=== PATIENT | male | born 1945 | race Hispanic/Latino ===

== ENCOUNTER 2019-06-24 15:10 | Emergency (ER) | payer MEDICARE ==
[~2019-06-24] VITALS: Ht 172.7 cm; Wt 68.0 kg
[~2019-06-24 15:10] MED LIST: ASPIR-LOW81 MG PO; ATORVASTATIN CA10 MG PO; OMEPRAZOLE40 MG PO
[2019-06-24] MEDS ORDERED: SODIUM CHLORIDE 0.9% 1000ML 1,000 ML IV STA (15:38)
[2019-06-24] MEDS ORDERED: ONDANSETRON HCL INJ 2MG/ML 2ML 2 MG/ML VIAL IV ONE (15:45)
[2019-06-24] MEDS ORDERED: KETOROLAC TROMETHAMINE 30 MG/ML VIAL IV ONE (15:45)
--- NOTE | 2019-06-24 16:30 | Diagnostic Imaging Report ---
EXAM: CT Abdomen and Pelvis WITHOUT intravenous contrast INDICATION: Abdominal pain, back pain COMPARISON: None. TECHNIQUE: Abdomen and pelvis were scanned utilizing a multidetector helical scanner from the lung base to the pubic symphysis without administration of IV contrast. Coronal and sagittal reformations were obtained. Routine protocol was performed. IV CONTRAST: None ORAL CONTRAST: Water RADIATION DOSE: Total DLP: 421.4 mGy*cm Dose modulation, iterative reconstruction, and/or weight based adjustment of the mA/kV was utilized to reduce the radiation dose to as low as reasonably achievable. FINDINGS: LOWER THORAX: Minimal dependent right lower lobe subsegmental atelectasis. HEPATOBILIARY: No focal liver lesion. Decompressed gallbladder. SPLEEN: No splenomegaly. PANCREAS: No focal masses or ductal dilatation. ADRENALS: No adrenal nodules. KIDNEYS/URETERS: No hydronephrosis, stones, or solid mass lesions. PELVIC ORGANS/BLADDER: Unremarkable. PERITONEUM / RETROPERITONEUM: No free air or fluid. LYMPH NODES: No lymphadenopathy. VESSELS: Atherosclerotic calcifications of the nonaneurysmal abdominal aorta and major branches. GI TRACT: Mild apparent thickening of the gastric wall. Diverticulosis without CT evidence of diverticulitis. Normal bowel wall thickening. No bowel obstruction. Normal appendix. BONES AND SOFT TISSUES: No acute osseous injury. Degenerative changes of the visualized spine. No suspicious lytic or blastic lesions. IMPRESSION: Mild apparent thickening of the gastric wall may be due to underdistention or could also be seen with gastritis. Otherwise, no acute findings in abdomen or pelvis. Specifically, no renal calculi or hydronephrosis. Signed by: Joyce Carroll MD on 06/24/2019 4:26 PM
[2019-06-24] MEDS ORDERED: ONDANSETRON HCL INJ 2MG/ML 2ML 2 MG/ML VIAL ONE (16:45)
[2019-06-24] MEDS ORDERED: KETOROLAC TROMETHAMINE 30 MG/ML VIAL ONE (16:46)
[2019-06-24] MEDS ORDERED: SODIUM CHLORIDE 0.9% 1000ML 1,000 ML ONE (16:46)
[2019-06-24 17:07] VITALS: BP 146/88
== END 2019-06-24 17:09 | disposition home or self-care (01) ==
LOC: FSED 15:10
DX: M54.5 Low back pain (principal); M47.816 Spondylosis without myelopathy or radiculopathy, lumbar region; M51.36 Other intervertebral disc degeneration, lumbar region; I10 Essential (primary) hypertension
CPT/HCPCS: 74176; 80053; 81003; 85025; 99284; J1885; J2405; J7030

== ENCOUNTER → 2020-02-20 | Outpatient (CLI) | payer MEDICARE ==
--- NOTE | 2020-02-20 15:55 | Diagnostic Imaging Report ---
Examination: MRI BRAIN WO CONTRAST History: Headaches. Dizziness. Comparison studies: None Technique: Sagittal T2; axial DWI, FLAIR, GRE or SWI, T1, Coronal FLAIR. Intravenous contrast: None Findings: Scalp: No abnormal signal. No masses. Bone marrow: Normal in signal intensity. Brain volume: Adequate for age. No volume loss. Ventricles: Normal in size and configuration. No hydrocephalus. Extra-axial spaces: No abnormalities. Parenchyma: There are a few scattered punctate areas of T2/FLAIR hyperintensity in the periventricular and subcortical white matter, nonspecific. No masses, hemorrhage, acute or chronic vascular insults. Suprasellar and sellar region: No abnormalities. Craniocervical junction: No abnormalities. The foramen magnum is patent. No Chiari malformations. Vessels: Normal flow-voids in the arteries and sinuses. Additional findings:Partially visualized (only seen on sagittal T2 images) between moderate to severe canal stenosis at C3-C4 due to diffuse disc bulge and ligamentum flavum thickening. IMPRESSION: No acute intracranial abnormalities. Partially visualized between moderate to severe canal stenosis at C3-C4. Signed by: Dr. Shania Atkins M.D. on 02/20/2020 3:52 PM
== END ==
LOC: MRI 14:16
PROVIDERS: ATTEND Psychiatry & Neurology Clinical Neurophysiology
DX: G43.019 Migraine without aura, intractable, without status migrainosus (principal)
CPT/HCPCS: 70551

== ENCOUNTER → 2020-03-16 | Outpatient (CLI) | payer OTHER ==
--- NOTE | 2020-03-16 10:06 | Diagnostic Imaging Report ---
History: Cervical spine stenosis. Comparison studies: None Technique: Sagittal and axial T1 and T2, sagittal STIR and axial T2 GRE. Intravenous contrast: None Findings: Alignment: Normal lordosis. No scoliosis. Cervicomedullary junction: No abnormalities. Patent foramen magnum. Soft tissues: No T2 hyperintense inflammatory changes. Spinal cord: Normal in size and signal from the foramen magnum through mass effect on the spinal cord due to severe canal stenosis at C5-C6 as described below. No gross cord signal abnormality. Vertebrae: No fractures, infection or neoplasm. Degenerative changes: C2-C3: Mildly degenerated disc. Uncovertebral arthrosis and severe right facet arthrosis with fused right facet without significant foraminal stenosis. Patent spinal canal. C3-C4: Mildly degenerated disc. Asymmetric right disc osteophyte complex and thickened ligamentum flavum result in moderate canal stenosis. Severe right and moderate left foraminal stenosis due to uncovertebral and severe right and mild left facet arthrosis. C4-C5: Mildly degenerated disc. Moderate canal stenosis due to a disc osteophyte complex and thickened ligamentum flavum. Severe left and moderate right foraminal stenosis due to uncovertebral arthrosis and severe left and mild right facet arthrosis. C5-C6: Mildly degenerated disc. Severe canal stenosis due to disc osteophyte complex and thickened and likely ossified ligamentum flavum. Moderate left and mild right foraminal stenosis due to uncovertebral and facet arthrosis. C6-C7: Mild canal stenosis due to disc osteophyte complex and thickened ligamentum flavum. Mild bilateral foraminal stenosis due to uncovertebral arthrosis. C7-T1: Moderate left and mild right foraminal stenosis due to uncovertebral facet arthrosis. IMPRESSION: 1. Degenerative canal stenosis, moderate at C3-C4 and at C4-C5 and severe at C5-C6 without gross associated cord signal abnormality. 2. Varying degrees of moderate to severe degenerative foraminal stenosis from C3 to C6 and moderate left foraminal stenosis at C7-T1. 3. Advanced multilevel facet arthrosis. Signed by: Dr. David Ortiz M.D. on 03/16/2020 10:02 AM
== END ==
LOC: MRI 08:30
PROVIDERS: ATTEND Psychiatry & Neurology Clinical Neurophysiology
DX: M48.02 Spinal stenosis, cervical region (principal)
CPT/HCPCS: 72141

== ENCOUNTER 2024-06-21 09:18 | Emergency (ER) | payer MEDICARE ==
[~2024-06-21] VITALS: Ht 172.7 cm; Wt 72.6 kg
[2024-06-21 09:27] VITALS: PULSE 78; RESP 18; TEMP 98; O2SAT 99
== END 2024-06-21 11:39 | disposition home or self-care (01) ==
LOC: ER 09:31
DX: S50.01XA Contusion of right elbow, initial encounter (principal); W22.09XA Striking against other stationary object, initial encounter; Y93.01 Activity, walking, marching and hiking; Y92.89 Other specified places as the place of occurrence of the external cause; E78.5 Hyperlipidemia, unspecified; K21.9 Gastro-esophageal reflux disease without esophagitis; Z85.46 Personal history of malignant neoplasm of prostate
CPT/HCPCS: 99283

== ENCOUNTER → 2024-07-01 | Outpatient (REF) | payer MEDICARE | LOC: MRI 08:37 | PROVIDERS: ATTEND Internal Medicine | DX: R22.31 Localized swelling, mass and lump, right upper limb (principal) ==